=== PATIENT | male | born 1950 | race Hispanic/Latino ===

== ENCOUNTER 2023-12-30 15:20 | Emergency (ER) | payer MEDICARE ==
[2023-12-30 16:00] LABS: Band 20 % (5-11); Hematocrit 47.4 % (42.0-52.0); Hemoglobin 15.5 g/dL (14.0-18.0); Lymphocytes 21 % (21-51); MDiff Complete? YES; Mean Corpuscular HGB CONC 32.7 g/dL (32.0-36.0); Mean Corpuscular Hemoglobin 30.4 pg (27.0-31.0); Mean Platelet Volume 7.5 fL (7.4-10.4); Monocytes 4 % (0-10); Neutrophil 54 % (42-75); Platelet Count 289 10x3/uL (130-400); RBC Distribution Width 12.5 % (11.5-14.5); Vacuoles SLIGHT; White Blood Cell (WBC) Count 8.8 10x3/uL (4.8-10.8)
[2023-12-30 16:03] LABS: ALT (SGPT) 16 U/L (8-55); AST (SGOT) 15 U/L (5-34); Albumin 4.1 g/dL (3.4-4.8); Alkaline Phosphatase 44 U/L (40-110); Anion Gap 20 mmol/L (10-20); BUN (Urea Nitrogen) 18 mg/dL (8.4-25.7); Bilirubin, Total 0.9 mg/dL (0.2-1.2); Calc. Creatinine Clearance 0 mL/min (70-130); Calcium 9.9 mg/dL (7.8-10.44); Carbon Dioxide 23 mmol/L (23-31); Chloride 96 mmol/L (98-107); Estimated GFR 47; Globulin 3.3 g/dL (2.4-3.5); Glucose 173 mg/dL (83-110); Magnesium 1.7 mg/dL (1.6-2.6); Potassium 3.4 mmol/L (3.5-5.1); Protein, Total 7.4 g/dL (5.8-8.1); Sodium 136 mmol/L (136-145)
[2023-12-30] MEDS ORDERED: Ondansetron PF 4 MG/2 ML Vial ONE (16:10)
== END 2023-12-30 17:33 | disposition home or self-care (01) ==
LOC: BURERS 15:20
DX: A09 Infectious gastroenteritis and colitis, unspecified (principal); E86.0 Dehydration; R11.2 Nausea with vomiting, unspecified
CPT/HCPCS: 80053; 83735; 85025; J2405; 36415; 96361; 96374

== ENCOUNTER 2024-01-14 10:34 | Emergency (ER) | payer MEDICARE ==
[2024-01-14] MEDS ORDERED: Lidocaine 1%/Epinephrine 1:100K 10 ML VIAL ONE (10:51)
[2024-01-14] MEDS ORDERED: Triple Antibiotic Oint 1 GM Packet ONE (11:13)
[2024-01-14] MEDS ORDERED: Boostrix 0.5 ML (Tdap) VIAL (>/=7 yrs of age) ONE (11:18)
== END 2024-01-14 11:30 | disposition home or self-care (01) ==
LOC: BURERS 10:34
DX: S91.311A Laceration without foreign body, right foot, initial encounter (principal); W20.8XXA Other cause of strike by thrown, projected or falling object, initial encounter
CPT/HCPCS: 90471; 90715

== ENCOUNTER 2024-02-14 16:31 | Emergency (ER) | payer MEDICARE | END 2024-02-14 16:50 | disposition home or self-care (01) | LOC: BURERS 16:31 | DX: N50.82 Scrotal pain (principal); N50.89 Other specified disorders of the male genital organs; E03.9 Hypothyroidism, unspecified; E78.5 Hyperlipidemia, unspecified; R73.03 Prediabetes | CPT/HCPCS: 99283 ==